=== PATIENT | female | born 1965 ===

== ENCOUNTER 2018-03-30 09:14 | Day surgery (SDC) | payer OTHER ==
[2018-03-28 14:34] VITALS: BMI 26.5
[~2018-03-30 09:14] MED LIST: Iohexol 240 (50 ml) ONE; MethylPREDNISolone Depo 40 mg/ml Inj ONE
[2018-03-30] MEDS ORDERED: Midazolam 2 MG/2 ML VIAL ONE (11:48)
[2018-03-30] MEDS ORDERED: Lidocaine Hydrochloride 10 ML INJ ONE (11:58)
[2018-03-30 13:01] VITALS: BP 119/79; PULSE 70; RESP 14; TEMP 97.5; O2SAT 99
--- NOTE | 2018-03-30 23:47 | OP ---
PROCEDURE DATE: 03/30/2018 PREOPERATIVE DIAGNOSES: Hip osteoarthritis, bursitis. POSTOPERATIVE DIAGNOSES: Hip osteoarthritis, bursitis. PROCEDURE: Left hip joint injection and left greater trochanteric bursa injection. SURGEON: Duke Buckley MD ANESTHESIA: Local with MAC sedation. BLOOD LOSS: 1 mL. BRIEF HISTORY AND INDICATION: The patient is with hip join pain and arthritis of the right and left hip. The patient came here today for intra-articular hip joint steroid injection under fluoroscopic guidance as well as the left greater trochanteric bursitis injection. PROCEDURE IN DETAIL: The patient was informed consent for the procedure. Risks and benefits were explained. The patient was brought back to the procedure room, placed in prone position. Routine monitors were applied. The patient's hip joint was imaged. Using fluoroscopy, a #25 gauge needle was used to inject lidocaine 1% subcutaneously with spinal needle. Subsequently, a #22-gauge 3.5-inch spinal needle was advanced into the hip joint. Omnipaque dye 1 mL was injected, showing good intra-articular spread. Subsequently, Depo-Medrol 30 mg with 4 mL of 1% lidocaine was injected. Intermittent aspiration was done throughout with no heme or CSF aspirated throughout. No paresthesia was elicited throughout. The patient tolerated the procedure well. Vital signs remained stable. The left greater trochanteric injection was then performed. A 22-gauge 3.5-inch spinal needle was used to advance on to the left greater trochanter until contact with bone. Needle was slowly withdrawn. Negative aspiration of heme or CSF was aspirated. Omnipaque dye was injected showing good spread with fluoroscopic guidance. Subsequently, 10 mg of Depo-Medrol and 3 mL of lidocaine preservative-free 1% was injected without any cause of aspiration of heme or CSF. The patient tolerated the procedure well. No events or complications. DISPOSITION: The patient will be given instructions to follow up in two weeks and was discharged from the postoperative area in stable condition. No events or complications. Duke Buckley MD
--- NOTE | 2018-03-31 16:44 | RAD ---
Date of service: 03/30/2018 PROCEDURE: Intraoperative Fluoroscopy. HISTORY: LT. SACROLITIS/AND LT. HIP PAIN FINDINGS: Fluoroscopic assistance was provided for left hip injection. Please refer to the operative report from [facility]. Total fluoroscopic time (continuous mode) utilized during the procedure 5.1 (seconds). Total exam DLP: (mGy). 0.34
== END 2018-03-30 12:55 | disposition home or self-care (01) ==
LOC: C.SDS 09:14
PROVIDERS: ATTEND Anesthesiology Pain Medicine
DX: M46.1 Sacroiliitis, not elsewhere classified (principal); S33.6XXA Sprain of sacroiliac joint, initial encounter; M43.27 Fusion of spine, lumbosacral region
CPT/HCPCS: 20610; J1030; J2250; J3010